=== PATIENT | male | born 1935 | race Caucasian/White ===

== ENCOUNTER 2016-10-29 15:01 | Observation (INO) ==
[2016-10-29] MEDS ORDERED: DUONEB (A & A) INH SCH (17:45)
[2016-10-29 19:08] LABS: MANUAL DIFF NEEDED? NO
[2016-10-29 19:11] LABS: BASO% 0.3 % (0.0-0.8); EOS# 0.23 X1000 (0.0-0.7); EOS% 2.3 % (0.0-10.0); HEMATOCRIT 40.9 % (42.0-52.0); HEMOGLOBIN 13.8 g/dL (14.0-18.0); IMM GRAN# 0.02 X1000 (0.0-0.04); IMM GRAN% 0.2 % (0.0-0.5); LYMPH# 2.41 X1000 (1.2-3.4); LYMPH% 24.3 % (20.5-51.1); MCHC 33.7 g/dL (33-37); MCV 83.1 FL (81-99); MONO% 6.1 % (1.7-9.3); MPV 8.5 FL (7.4-10.4); NEUT% 66.8 % (42.2-75.2); PLT 257 X1000 (130-400); RBC 4.92 XMIL (4.7-6.1)
[2016-10-29 19:19] LABS: INR 1.01; PROTIME 10.6 Seconds (9.2-11.7)
[2016-10-29 19:45] LABS: ALBUMIN 4.4 g/dL (3.5-5.0); CALCIUM 9.1 mg/dL (8.8-10.2); POTASSIUM 4.2 mmol/L (3.5-5.1); TOTAL BILIRUBIN 0.28 mg/dL (0.20-1.00); TOTAL PROTEIN 8.2 g/dL (6.3-8.3)
[2016-10-29] MEDS ORDERED: LOVENOX SUBQ SCH (20:00)
[2016-10-29] MEDS: HUMALOG SUBQ SCH (21:47)
[2016-10-29] MEDS: LOPRESSOR PO SCH (21:48)
[2016-10-29] MEDS: DUONEB (A & A) INH SCH (22:32)
[2016-10-30] MEDS: DUONEB (A & A) INH SCH ×3 (05:06→15:53)
[2016-10-30] MEDS: HUMALOG SUBQ SCH ×3 (06:39→16:00)
[2016-10-30 07:06] LABS: MANUAL DIFF NEEDED? NO
[2016-10-30 07:17] LABS: BASO% 0.5 % (0.0-0.8); EOS# 0.32 X1000 (0.0-0.7); EOS% 3.7 % (0.0-10.0); HEMATOCRIT 40.8 % (42.0-52.0); HEMOGLOBIN 13.7 g/dL (14.0-18.0); IMM GRAN# 0.02 X1000 (0.0-0.04); IMM GRAN% 0.2 % (0.0-0.5); LYMPH# 2.42 X1000 (1.2-3.4); LYMPH% 27.8 % (20.5-51.1); MCH 27.6 PG (27-31); MCHC 33.6 g/dL (33-37); MCV 82.3 FL (81-99); MPV 9.2 FL (7.4-10.4); NEUT% 59.8 % (42.2-75.2); PLT 235 X1000 (130-400); RBC 4.96 XMIL (4.7-6.1)
[2016-10-30 07:38] LABS: AGAP 13; ALKALINE PHOSPHATASE 84 U/L (32-122); BUN 15 mg/dL (8-22); CALCIUM 9.7 mg/dL (8.8-10.2); CHLORIDE 90 mmol/L (98-107); COSMO 258; GOT 16 U/L (10-34); GPT 10 U/L (10-44); HDL 31 mg/dL (35-55); LDL 95 mg/dL; MAGNESIUM 1.9 mg/dL (1.5-2.7); POTASSIUM 4.3 mmol/L (3.5-5.1); SODIUM 128 mmol/L (136-145); TCO2 25 mmol/L (25-35); TOTAL BILIRUBIN 0.41 mg/dL (0.20-1.00); TOTAL PROTEIN 7.8 g/dL (6.3-8.3); TRIGLYCERIDES 86 mg/dL (39-160); VLDL 17 mg/dL
[2016-10-30 07:57] LABS: FREE T4 1.14 ng/dL (0.93-1.70)
[2016-10-30] MEDS: LOPRESSOR PO SCH (08:44)
[2016-10-30] MEDS ORDERED: ASPIRIN PO SCH (09:00)
[2016-10-30] MEDS ORDERED: NORVASC PO SCH ×2 (09:00)
[2016-10-30] MEDS ORDERED: LIVALO PO SCH (09:00)
[2016-10-30 15:48] VITALS: BP 142/62
== END 2016-10-30 17:02 | disposition home or self-care (01) ==
LOC: DIRADM → 3N 17:25
PROVIDERS: ADMIT Internal Medicine; ATTEND Internal Medicine

== ENCOUNTER 2018-03-04 15:00 | Observation (INO) ==
--- NOTE | 2018-03-04 16:09 | Diag Imaging Result Doc PS360 ---
MRI BRAIN W/O CONTRAST - 03/04/2018 INDICATION: tia COMPARISON: None FINDINGS: There is no area of restricted diffusion. There is moderate diffuse atrophy. There is advanced cerebral white matter chronic microvascular disease. No intracranial mass or hemorrhage. There is extensive sinusitis of mainly the maxillary sinuses. There is also extensive bilateral otomastoiditis. IMPRESSION: No acute intracranial abnormality. Extensive sinusitis and bilateral otomastoiditis. Electronically signed by Sloan Osborn 03/04/2018 4:07 PM
--- NOTE | 2018-03-04 16:09 | EKG Report ---
Test Performed on : 03/04/2018 4:05:32 PM Test Reason : tia Blood Pressure : / mmHG Vent. Rate : 080 BPM Atrial Rate : 080 BPM P-R Int : 152 ms QRS Dur : 088 ms QT Int : 354 ms P-R-T Axes : 010 050 068 degrees QTc Int : 408 ms Sinus rhythm. with occasional premature ventricular complexes. Minimal voltage criteria for LVH, may be normal variant Borderline ECG When compared with ECG of 29-OCT-2016 18:14, premature ventricular complexes. are now present Confirmed by Marco A YUNG, Nicholas Davis ([id number]) on 03/05/2018 8:04:57 AM
--- NOTE | 2018-03-04 16:25 | Diag Imaging Result Doc PS360 ---
CHEST-2 VIEWS - 03/04/2018 INDICATION: tia COMPARISON: 01/12/2018 FINDINGS: Stable advanced COPD with pulmonary fibrosis. No new or focal infiltrates. Heart size is top normal. No pneumothorax or pleural effusion. IMPRESSION: COPD with pulmonary fibrosis. No change from prior. Electronically signed by Sloan Osborn 03/04/2018 4:23 PM
[2018-03-04] MEDS: NS 1,000 ML IV SCH (18:26)
[2018-03-04 18:33] LABS: BASO# 0.06 X1000 (0.0-0.2); BASO% 0.8 % (0.0-0.8); EOS# 0.66 X1000 (0.0-0.7); EOS% 8.5 % (0.0-10.0); HEMATOCRIT 41.8 % (42.0-52.0); HEMOGLOBIN 13.5 g/dL (14.0-18.0); IMM GRAN# 0.03 X1000 (0.0-0.04); IMM GRAN% 0.4 % (0.0-0.5); LYMPH# 2.23 X1000 (1.2-3.4); LYMPH% 28.6 % (20.5-51.1); MCH 26.9 PG (27-31); MCHC 32.3 g/dL (33-37); MCV 83.4 FL (81-99); MONO# 0.76 X1000 (0.11-0.59); MONO% 9.7 % (1.7-9.3); NEUT# 4.06 X1000 (1.4-6.5); PLT 259 X1000 (130-400); RBC 5.01 XMIL (4.7-6.1); RDW 14.6 % (11.5-14.5)
[2018-03-04 18:50] LABS: AGAP 11; ALB/GLOB RATIO 1.1; ALBUMIN 3.6 g/dL (3.5-5.0); ALKALINE PHOSPHATASE 77 U/L (32-122); BUN 12 mg/dL (8-22); CALCIUM 9.1 mg/dL (8.8-10.2); CHLORIDE 90 mmol/L (98-107); COSMO 259; ESTIMATED GFR > 60; GLUCOSE 97 mg/dL (70-104); GOT 17 U/L (10-34); GPT 16 U/L (10-44); MAGNESIUM 1.7 mg/dL (1.5-2.7); POTASSIUM 4.4 mmol/L (3.5-5.1); SODIUM 129 mmol/L (136-145); TCO2 28 mmol/L (25-35); TOTAL BILIRUBIN 0.21 mg/dL (0.20-1.00); TOTAL PROTEIN 6.9 g/dL (6.3-8.3)
[2018-03-04] MEDS: LOVENOX SUBQ SCH ×2 (19:06→19:34)
[2018-03-04] MEDS: ASPIRIN EC PO SCH (19:06)
[2018-03-04 19:17] LABS: BANDS 7 % (0-1); EOS 4 % (1-10); LYMPHS 29 % (21-51); MONO 6 % (1-9); SEGS 53 % (42-75)
[2018-03-04] MEDS: PERFOROMIST NEB INH SCH (19:45)
[2018-03-04] MEDS ORDERED: PERFOROMIST NEB INH SCH (21:00)
[2018-03-04] MEDS: MACROBID PO SCH (21:29)
[2018-03-04] MEDS: LOPRESSOR PO SCH (21:29)
--- NOTE | 2018-03-05 03:09 | HISTORY AND PHYSICAL ---
CHIEF COMPLAINT: Altered mental status. HISTORY OF PRESENT ILLNESS: The patient has been sick since Friday. The patient claimed he had a UTI. He came to see me. I gave him Macrobid, Norvasc, hydrochlorothiazide, and patient was already on beta-eduardo. Patient took all of his medications. Within an hour, patient became weak and disoriented. He was not communicating well. According to , the patient was not acting right. He had right-sided weakness. Also had questionable slurred speech and disorientation. was concerned about stroke. Unsteady gait, vertigo. Patient does have vertigo off and on, but because of altered mental status, unsteady gait, and weakness, was concerned about stroke. She took him to the emergency room. The patient had initial evaluation or triage done. Patient was told it may take many hours before physician sees him. Patient was feeling some better and he left the hospital without being seen. According to , the patient is still not doing well. He still has an unsteady gait, vertigo, at times confusion, some weakness in the right side. The patient was brought to my office. I evaluated the patient and decided to admit him for observation. The patient is very vague and a poor historian. He does have multiple risk factors for atherosclerosis and coronary artery disease including uncontrolled hypertension, hyperlipidemia, smoker, and diabetes mellitus. The patient is noncompliant to treatment and followup. The patient does have chronic cough with scanty sputum production. He denied any hemoptysis. The patient does have advanced COPD, pulmonary fibrosis. The patient is on nebulizer treatment. Does have occasional headache, vertigo. Denied any sore throat. No typical chest pain. At times, palpitations. No orthopnea or PND. Denied abdominal pain, nausea, vomiting. No diarrhea, blood or mucus in the stool. No dysuria or hematuria. The patient does have urinary hesitancy, at times polyuria, polydipsia. No gross hematuria. Denied any leg swelling, unquantified weight loss. No skin rash. Complaining of weakness in the right upper and lower limbs. Complaining of headache. The patient does have a problem with hearing. At times, arthritic pain in the knee. No further history available at this time. ALLERGIES: Augmentin. PAST MEDICAL HISTORY: Hypertension, hyperlipidemia, diabetes mellitus, vertigo, COPD, pulmonary fibrosis, coronary artery disease, BPH, NIDDM. PERSONAL HISTORY: and lives with the . The patient does smoke. Denied alcohol or substance abuse. FAMILY HISTORY: Noncontributory. CURRENT MEDICATIONS: Includes metoprolol. The patient is on Perforomist, aspirin, Macrobid, hydrochlorothiazide. REVIEW OF SYSTEMS: As per HPI. PHYSICAL EXAMINATION: GENERAL: Elderly, white gentleman, in mild distress. VITAL SIGNS: Blood pressure 162/89, pulse 66, respirations 20, temperature 98.4 degrees. SKIN: Senile turgor. HEENT: Head atraumatic, normocephalic. Valeria conjunctivae. Anicteric sclerae. Extraocular muscle movement normal. Fundus cannot be penetrated. Good oral hygiene. No tonsillopharyngeal congestion or exudate. Ears and nose benign. NECK: Supple. No JVD, thyromegaly, or lymphadenopathy. CHEST: Bilateral good air entry present. Bibasilar crepitation. Bilateral occasional wheezing. CARDIOVASCULAR: S1 and S2 heard. No gallop or thrill. ABDOMEN: Soft, globular. Bowel sounds present. No organomegaly or mass. EXTREMITIES: No cyanosis or clubbing. No acute DVT. Peripheral pulsation intact. FREELANCE GRAPHIC DESIGNER: Alert, awake. Able to move all 4 limbs. The patient does have questionable minimal weakness on the right side. Deep tendon reflexes +2. Plantars were downgoing. CONSIDERATION: Patient admitted with symptoms suggestive of transient ischemic attack. His other problems include vertigo, hypertension, hyperlipidemia, noninsulin-dependent diabetes mellitus, chronic obstructive pulmonary disease, pulmonary fibrosis. Chest x-ray did reveal chronic obstructive pulmonary disease with pulmonary fibrosis. I did MRI of the brain. No acute intracranial abnormality. It did show extensive sinusitis and bilateral otomastoiditis. The patient's electrocardiogram was noted. The lab data revealed mild hyponatremia. Otherwise, it was benign. Magnesium was 1.7. CBC results reviewed. PLAN: Admit the patient for observation, telemetry monitoring, neurological checks, fall precaution. Continue home medicine, aspirin. Overall plan discussed with the patient and . They are in agreement. cc: Blu Kessler MD
[2018-03-05 06:15] LABS: BASO# 0.05 X1000 (0.0-0.2); BASO% 0.6 % (0.0-0.8); EOS# 0.81 X1000 (0.0-0.7); EOS% 9.9 % (0.0-10.0); HEMATOCRIT 38.5 % (42.0-52.0); HEMOGLOBIN 12.4 g/dL (14.0-18.0); IMM GRAN# 0.04 X1000 (0.0-0.04); IMM GRAN% 0.5 % (0.0-0.5); LYMPH# 2.17 X1000 (1.2-3.4); LYMPH% 26.6 % (20.5-51.1); MCHC 32.2 g/dL (33-37); MCV 83.7 FL (81-99); MONO# 0.89 X1000 (0.11-0.59); MONO% 10.9 % (1.7-9.3); NEUT# 4.21 X1000 (1.4-6.5); NEUT% 51.5 % (42.2-75.2); PLT 232 X1000 (130-400); RDW 14.4 % (11.5-14.5); WBC 8.17 X1000 (4.8-10.8)
[2018-03-05] MEDS: NS 1,000 ML IV SCH (06:25)
[2018-03-05 06:29] LABS: HEMOGLOBIN A1C 6.3 % (4.8-6.0)
[2018-03-05 06:32] LABS: AGAP 8; ALBUMIN 3.4 g/dL (3.5-5.0); ALKALINE PHOSPHATASE 65 U/L (32-122); BUN 14 mg/dL (8-22); CHLORIDE 97 mmol/L (98-107); CHOLESTEROL 144 mg/dL (0-200); COSMO 267; ESTIMATED GFR > 60; GLUCOSE 108 mg/dL (70-104); GOT 15 U/L (10-34); GPT 13 U/L (10-44); HDL 24 mg/dL (35-55); LDL 98 mg/dL; SODIUM 133 mmol/L (136-145); TCO2 28 mmol/L (25-35); TOTAL BILIRUBIN 0.27 mg/dL (0.20-1.00); TOTAL PROTEIN 6.8 g/dL (6.3-8.3); TRIGLYCERIDES 112 mg/dL (39-160); VLDL 22 mg/dL
[2018-03-05] MEDS ORDERED: NICODERM PATCH TD ONE (06:39)
[2018-03-05] MEDS ORDERED: ROCEPHIN 1 GM in NS 50 ML IV SCH (06:45)
--- NOTE | 2018-03-05 07:30 | PROGRESS NOTE ---
DATE: 03/05/2018 SUBJECTIVE: Mr. Gamble is doing better. He does have chronic cough with scanty sputum production. No fever or chills. No new weakness. Denied any nausea or vomiting. Denied any dysuria or hematuria. OBJECTIVE: Patient vital signs noted. Blood pressure 162/75, pulse 74, respirations 20, temperature 97.4. Skin: Senile turgor. No rash or petechiae. HEENT: Head atraumatic, normocephalic. [place] conjunctivae. Anicteric sclerae. Extraocular muscle movement normal. Neck supple. No JVD. Lungs: Bibasilar crepitation. Occasional wheezing. CVS: S1 and S2 heard. Abdomen soft, nontender. Bowel sounds present. Extremities: No cyanosis, clubbing. No acute DVT. HELP DESK SUPERVISOR: Alert, awake, able to move all 4 limbs. The patient's EKG reveals sinus rhythm. The patient had an MRI of the brain done, which did reveal no acute stroke, extensive sinusitis, and bilateral otomastoiditis. I started the patient on antibiotics, and I am going to treat him for 21 days. Carotid Doppler and echo result is pending. Lab data done today: WBC count 8.17, hemoglobin 12.4, hematocrit 38.5, platelet count 232,000. Sodium 133. Hemoglobin A1c 6.3. Lipid panel results reviewed. LDL was 98. Considering his diabetes and multiple risk factors, the patient will be benefited from lipid lowering agent. I started the patient on antibiotics. Will continue current blood pressure medicine. Follow up with me in a week. In case of more distress, call us back or go to the emergency room. Overall discharge condition satisfactory. I encouraged the patient to quit smoking. 1800 calorie ADA. cc: Blu Kessler MD
--- NOTE | 2018-03-05 08:16 | ECHO REPORT ---
ORDER DATE: 03/04/2018 INDICATIONS: Transient ischemic attack, coronary heart disease, COPD. M-MODE MEASUREMENTS: Left ventricle end diastole: 4.4 cm. Left ventricle end systole: 3.4 cm. Posterior wall: 1.3 cm. Interventricular septum: 1.4 cm. Left atrium: 3.1 cm. Aortic root: 3.7 cm. SUMMARY OF 2-DIMENSIONAL IMAGIN. The left ventricular function is normal. Ejection fraction 55%. There is mild degree of concentric LVH. No wall motion abnormality is noted. Right ventricle is grossly normal. 2. Aortic valve is calcified. It shows restricted opening. Maximum gradient across this valve is 21 mmHg. Mean gradient is 12 mmHg. This would suggest that there is only a very mild degree of aortic stenosis. Color flow mapping shows mild to moderate degree of aortic regurgitation. 3. The mitral annulus shows no calcification. Color flow mapping of mitral valve indicates mild degree of regurgitation. 4. Pulse wave Doppler of mitral inflow shows reversal of E/A ratio, ratio is 0.6. 5. Tissue Doppler of septal and lateral mitral annulus averages 5.5 cm. 6. There is impaired left ventricular relaxation. 7. Tricuspid valve shows trace regurgitation. 8. The inferior vena cava is not dilated. 9. Pulmonary artery pressure is normal. 10.Pulmonic valve appears to be within normal range. Color flow mapping indicates mild degree of regurgitation. 11.There is no pericardial effusion, mass and no thrombus. SUMMARY: In summary, this study shows: 1. Preserved left ventricular systolic function, ejection fraction 55% with mild degree of concentric left ventricular hypertrophy. 2. Impaired left ventricular relaxation. 3. Normal pulmonary pressure. 4. Calcification of the aortic valve with mild to moderate degree of aortic regurgitation and mild degree of aortic stenosis. Clinical correlation recommended. cc: MD Blu Tinajero MD [facility] SYSTEMMarcelle
[2018-03-05] MEDS: MACROBID PO SCH (08:38)
[2018-03-05] MEDS: LOPRESSOR PO SCH (08:38)
[2018-03-05] MEDS: ASPIRIN EC PO SCH (08:40)
[2018-03-05] MEDS ORDERED: NORVASC PO SCH (09:00)
[2018-03-05] MEDS ORDERED: HYDROCHLOROTHIAZIDE PO SCH (09:00)
[2018-03-05] MEDS: PERFOROMIST NEB INH SCH (11:07)
[2018-03-05 11:32] VITALS: BP 161/89
== END 2018-03-05 12:50 | disposition home or self-care (01) ==
LOC: DIRADM → 4N 15:00
PROVIDERS: ADMIT Internal Medicine; ATTEND Internal Medicine
CPT/HCPCS: 70551; 71020; 71046; 80053; 80061; 83036; 83735; 85025; 93005; 93010; 93306; 93880; 94640; 94761; A9270; C8929; J0696; J1650; J7030; J7606; Q9957

== ENCOUNTER 2018-06-06 15:14 | Inpatient (IN) ==
[2018-06-06] MEDS ORDERED: NS 1,000 ML IV ONE (16:38)
[2018-06-06] MEDS ORDERED: ROCEPHIN 1 GM in NS 50 ML IV ONE (16:41)
--- NOTE | 2018-06-06 17:39 | PROVIDER DOCUMENTATION ---
HPI-Abdominal Pain/GI Problem - General Chief Complaint: Flank Pain Stated Complaint: UTI Time Seen by Provider: 06/06/18 15:19 Source: patient, family Allergies/Adverse Reactions: Patient Allergies Allergy/AdvReac Type Severity Reaction Status Date / Time amoxicillin trihydrate * AdvReac Intermediate NAUSEA/VOMI Verified 04/02/14 20:39 [From Augmentin] TING potassium clavulanate * AdvReac Intermediate NAUSEA/VOMI Verified 04/02/14 20:39 [From Augmentin] TING Home Medications: Home Medication List Medication Instructions Recorded Confirmed Last Taken Type Aspirin 81 mg PO DAILY 07/23/12 06/05/18 03/04/18 09:00 History Metoprolol [Lopressor] 100 mg PO BID 07/23/12 06/05/18 03/04/18 09:00 History Formoterol Fumarate [Perforomist] 1 packet INH BID 10/30/16 06/05/18 03/04/18 09:00 History Hydrochlorothiazide [Microzide] 12.5 cap PO DAILY 03/04/18 06/05/18 03/03/18 09:00 History ATORVAstatin [Lipitor] 10 mg PO DAILY #30 tablet 03/05/18 06/05/18 Unknown Rx Amlodipine [Norvasc] 5 mg PO DAILY tablet 03/05/18 Unknown Rx Ciprofloxacin HCl [Cipro] 500 mg PO BID #20 tab 06/05/18 Unknown Rx Sitagliptin Phosphate [Januvia] 100 mg PO DAILY 06/05/18 06/05/18 Unknown History - History of Present Illness-ABD Nature of Presenting Problems: reports that he has flank pain b/l. associated with dizziness for the last few days. has history of burning/painful urination intermittent for awhile. no fever chills, n/v, abd pain, sob. cp, headache, blurred vision. Review of Systems - Adult - REVIEW OF SYSTEMS - ADULT Constitutional: reports: no symptoms reported Eyes: reports: no symptoms reported Ears, Nose, Mouth & Throat: reports: no symptoms reported Cardiovascular: reports: no symptoms reported Respiratory: reports: no symptoms reported Gastrointestinal: reports: no symptoms reported Genitourinary: reports: no symptoms reported Musculoskeletal: reports: no symptoms reported Integumentary: reports: no symptoms reported Neurological: reports: no symptoms reported Psychiatric: reports: no symptoms reported Endocrine: reports: no symptoms reported Hematologic/Lymphatic: reports: no symptoms reported Allergic/Immunologic: reports: no symptoms reported All Other Systems: Reviewed and Negative Past History - Adult - PAST MEDICAL HISTORY-ADULT Review of Records: reports: Old Records Reviewed, Nursing Assessment Review, Medications Reviewed, Social history reviewed & non-contributory. Major Childhood Illnesses: reports: denies history Cardiovascular: reports: CAD, HTN Respiratory: reports: COPD Gastrointestinal: reports: denies history Obstetrical/Gynecological: reports: denies history Genitourinary: reports: denies history Musculoskeletal: reports: denies history Neurological: reports: denies history Endocrine/Immune: reports: Diabetes Other Conditions: reports: denies history - PRIOR SURGERIES/PROCEDURES Surgical/Procedure History: reports: appendectomy, cholecystectomy, tonsillectomy, other - IMMUNIZATION STATUS Childhood Immunizations: See Nurse Assessment Flu Vaccine: See Nurse Assessment - FAMILY HISTORY Family History: reviewed, not pertinent - SOCIAL HISTORY Smoking: denies Substance Use: none/never Alcohol Use Frequency: never Living Situation: family Physical Exam-General - PHYSICAL EXAM-ADULT Initial Vital Signs Reviewed: Yes - CONSTITUTIONAL General Appearance: appears well, alert, no apparent distress - EYES Eyes: PERRL/EOMI, pink conjunctivae - HEAD, EARS, NOSE, MOUTH & THROAT HENMT: normocephalic/atraumatic, other (dry oral mucous) - NECK Neck: non-tender, full range of motion - RESPIRATORY Respiratory: chest non-tender, lungs clear - CARDIOVASCULAR Cardiovascular: normal peripheral pulses, regular rate, rhythm - GASTROINTESTINAL (ABDOMEN) Abdominal Exam: normal bowel sounds, non tender - MUSCULOSKELETAL Back Exam: CVA tenderness (b/l) Extremity: normal range of motion, non-tender - SKIN Integumentary: normal color, warm/dry - NEUROLOGIC Neurologic: grossly normal, no motor/sensory deficits - PSYCHIATRIC Psych/Mental Status: normal thought content, normal thought process, oriented x 3 Progress - PLAN OF CARE/RESULTS Progress/Plan/Lab Results: Vital Signs - 8 hr 06/06/18 15:34 Temperature 98.6 F Pulse Rate 85 Respiratory Rate 18 Blood Pressure 104/51 O2 Sat by Pulse Oximetry 96 Orders Category Date Time Status CT ABD/PELVIS W/IV CONT ONLY [CT] Stat Exams 06/06/18 17:29 Ordered BASIC METABOLIC PANEL [CHEM] Stat Lab 06/06/18 17:10 Received CBC WITH DIFF [HEME] Stat Lab 06/06/18 17:10 Results LACTATE, PLASMA [CHEM] Stat Lab 06/06/18 17:35 Ordered URINALYSIS [URINALYSIS] Stat Lab 06/06/18 15:26 Uncollected 0.9% Sodium Chloride Inj [Ns] 1,000 ml Med 06/06/18 16:38 Active IV 999 mls/hr CefTRIAXONE [Rocephin] 1 gm Med 06/06/18 16:41 Discontinued 0.9% Sodium Chloride Inj [Ns] 50 ml IV NOW Result Diagrams: 06/06/18 17:10 06/06/18 17:10 Departure - Departure Date of Disposition Decision: 06/06/18 Time of Disposition Decision: 21:01 DIAGNOSIS: Hypotension, SIRS (systemic inflammatory response syndrome) Disposition: ADMITTED INPATIENT 09 Certified Medical Emergency: Emergent Condition: Stable Referrals and Follow-Ups: Blu Kessler MD [Primary Care Provider] - - Critical Care Note This patient required my direct & personal management of CC.: No Attestation - Physician/ HARMONY Attestation The physician spent face to face time with patient:: Yes Advanced Practice Provider documentation review:: Supervising physician onsite and consulted in the evaluation and care of this patient. The physician did have a face to face encounter with the patient.
[2018-06-06 17:42] LABS: BASO# 0.02 X1000 (0.0-0.2); BASO% 0.1 % (0.0-0.8); EOS# 0.01 X1000 (0.0-0.7); EOS% 0.1 % (0.0-10.0); HEMATOCRIT 35.9 % (42.0-52.0); HEMOGLOBIN 11.7 g/dL (14.0-18.0); IMM GRAN# 0.04 X1000 (0.0-0.04); IMM GRAN% 0.2 % (0.0-0.5); LYMPH# 0.55 X1000 (1.2-3.4); LYMPH% 3.1 % (20.5-51.1); MCH 27.2 PG (27-31); MCHC 32.6 g/dL (33-37); MCV 83.5 FL (81-99); MONO# 1.21 X1000 (0.11-0.59); MONO% 6.8 % (1.7-9.3); MPV 9.4 FL (7.4-10.4); NEUT# 15.85 X1000 (1.4-6.5); NEUT% 89.7 % (42.2-75.2); PLT 218 X1000 (130-400); RDW 14.9 % (11.5-14.5); WBC 17.68 X1000 (4.8-10.8)
[2018-06-06 18:12] LABS: LYMPHS 3 % (21-51); MONO 5 % (1-9); SEGS 92 % (42-75)
[2018-06-06 18:16] LABS: CREATININE 1.7 mg/dL (0.7-1.2); POTASSIUM 4.2 mmol/L (3.5-5.1)
[2018-06-06 18:55] LABS: URINE SOURCE VOIDED
[2018-06-06 18:58] LABS: BILIRUBIN URINE NEGATIVE (NEGATIVE); BLOOD URINE SMALL (NEGATIVE); COLOR YELLOW; GLUCOSE URINE NEGATIVE (NEGATIVE); KETONE URINE NEGATIVE (NEGATIVE); LEUKOCYTES URINE LARGE (NEGATIVE); NITRITE URINE NEGATIVE (NEGATIVE); PH URINE 5.5; PROTEIN URINE 30 mg/dL (NEGATIVE); SP GRAVITY URINE 1.009; TURBIDITY URINE HAZY (CLEAR); UROBILINOGEN URINE NORMAL (NORMAL)
[2018-06-06 19:01] LABS: UR EPITHELIAL CELLS <10 /HPF (<10); URINE BACTERIA NEGATIVE /HPF; URINE RBC <10 /HPF (<10); URINE WBC TNTC /HPF (<10)
--- NOTE | 2018-06-06 19:14 | Diag Imaging Result Doc PS360 ---
EXAM: CT ABDOMEN/PELVIS W/O CONTRAST INDICATION: pyelo TECHNIQUE: This exam was performed using automated exposure control, adjustment of mA or kV according to patient size, and/or use of iterative reconstruction technique. COMPARISON: 06/22/2014 FINDINGS: There is pulmonary fibrosis at both lung bases with honeycombing. There has been a prior cholecystectomy. The liver, spleen, pancreas, and adrenal glands are essentially unremarkable. There are several small cyst density lesions involving both kidneys. There are no renal or ureteral stones and there is no hydronephrosis. The kidneys are essentially unremarkable as imaged with unenhanced CT, otherwise. The urinary bladder is partially distended. Incomplete distention is causing mild wall thickening. The urinary bladder is unremarkable, otherwise. There is moderate uncomplicated diverticulosis coli. No focal bowel wall thickening is identified. There is no evidence of bowel obstruction. The remainder of the GI tract is grossly unremarkable. There is extensive aortoiliac atherosclerotic calcification. There is intermittent subaneurysmal aortic ectasia. No focal inflammatory changes, free abdominal gas, or free fluid is identified. There is lumbar spondylosis. The bony structures are intact. IMPRESSION: Incidental/nonacute findings detailed above. No evidence of acute pathology by unenhanced CT. Electronically signed by Jamey Sarah 06/06/2018 7:12 PM
--- NOTE | 2018-06-06 21:34 | Diag Imaging Result Doc PS360 ---
EXAM: CT THORAX W/O CONTRAST INDICATION: pulmonary fibrosis honeycomb, pna. TECHNIQUE: This exam was performed using automated exposure control, adjustment of mA or kV according to patient size, and/or use of iterative reconstruction technique. COMPARISON: 05/10/2015 FINDINGS: There is coarse interstitial thickening at the peripheries of both lungs that is worst at the lung bases consistent with pulmonary fibrosis. There is associated honeycombing. The fibrosis has worsened slightly during the interval, at least at the bases. There is also likely a component of pulmonary emphysema at the lung apices. There is a catheter via granuloma in the right upper lobe. No new consolidations are appreciated. There are a few small calcified pleural plaques posteriorly. There is no pleural fluid collection and no pneumothorax. There is no cardiomegaly. There is extensive coronary artery atherosclerotic calcification. There is aortic atherosclerotic disease. IMPRESSION: Pulmonary fibrosis that is slightly worse than the previous study as described also with a probable component of emphysema. No definite acute chest pathology. Electronically signed by Jamey Sarah 06/06/2018 9:32 PM
[2018-06-07] MEDS ORDERED: TYLENOL PO PRN (00:44)
[2018-06-07] MEDS ORDERED: ZOFRAN IV PRN (00:44)
[2018-06-07] MEDS: NS 1,000 ML IV SCH ×2 (01:47→15:02)
[2018-06-07] MEDS: MAXIPIME 1 GM in NS 50 ML IV SCH ×2 (01:48→15:03)
[2018-06-07] MEDS: HEPARIN SUBQ SCH ×3 (01:48→15:09)
--- NOTE | 2018-06-07 06:05 | HISTORY AND PHYSICAL ---
REASON FOR ADMISSION: Weakness and dizziness with bilateral flank pain for 1 week. HISTORY OF PRESENT ILLNESS: Mr. Doug Gamble is an 83-year-old male with past medical history of COPD, BPH, pulmonary fibrosis, hypertension, type 2 diabetes. Was seen in the ER yesterday with complaints of bilateral flank pain. He was sent home on some antibiotics, namely ciprofloxacin, and told to follow up with primary care physician. So far his cultures are not growing anything yet, but patient comes in complaining that his pain is constant in the flank emanating from the base of his spine and spreading out to both flanks. He describes the pain as sharp, constant, worse with movement and also complains of a 2-week history of dysuria but no hematuria. Has a longstanding history of poor urinary stream which has not worsened. He does admit to having 2 weeks history of chills with this. No fevers, however. He denies any GI complaints. He denies any respiratory complaints other than a chronic cough productive of whitish sputum for several years and he sees a microsoft exchange administrator for this. No increased shortness of breath. No leg swelling. No PND or orthopnea. REVIEW OF SYSTEMS: Twelve system review was done. Positive findings per HPI. ALLERGIES: Amoxil and Augmentin. MEDICATIONS: Home medications have been not reconciled at this time. SOCIAL HISTORY: Smokes 1-1/2 packs a day. No alcohol or drug use. He is . FAMILY HISTORY: Notable for heart disease in first-degree relatives. SURGICAL HISTORY: Was not reviewed. PAST MEDICAL HISTORY: See above including coronary artery disease. LABORATORY WORK: White count 7000, hemoglobin and hematocrit 11 and 36, platelets 218,000, 89% neutrophils. Sodium is 125, BUN is 35, creatinine 1.7 up from 1.4 yesterday, glucose is 121. Urinalysis, large leukocytes, too numerous to count WBCs. CT of the abdomen and pelvis shows no acute pathology especially no evidence of renal stranding. CT of the chest was also done to rule out the possibility of underlying pneumonia but it does slightly worsening pulmonary fibrosis. PHYSICAL EXAMINATION: VITAL SIGNS: Blood pressure is 161/81, heart rate is 85, respirations 18, temperature is 98.6. He is 98% on room air. GENERAL: He is a thin, chronically ill, elderly man not in acute distress. A and O x3. Normal mood and affect. HEENT: Head is normocephalic, atraumatic. Eyes, JOSELINE. EOMI. Not pale. ENT exam is grossly normal. NECK: Supple. No JVD or carotid bruit. No thyromegaly. CHEST: Bibasilar crepitations noted in the lower half of the lungs. No wheezes. Decreased entry in both lung esquivel. CARDIOVASCULAR: First and second heart sounds are heard. Soft 2/6 systolic murmur heard in the aortic area. Rhythm is regular. ABDOMEN: Protuberant, soft. No tenderness or megaly. Bowel sounds hypoactive. RECTAL: Exam deferred at this time. There is positive right CVA tenderness. EXTREMITIES: Patient has no edema, clubbing or peripheral cyanosis. Pulses distally have good volume and regular. NEUROLOGIC: No gross focal deficits. SKIN: Intact. No breakdown, lesion, erythema. MUSCULOSKELETAL: Exam is grossly normal. ASSESSMENT: 1. Leukocytosis with flank pain. Still cannot rule out underlying pyelonephritis. Also consider possibility of etiology of sterile pyuria, i.e. fungal or mycobacterial etiology although less likely. Also consider prostatitis although this would not account for flank pain. If contrast was given, the possibility of renal abscesses may be entertained although this may have been picked up by CAT scan. The plan: We will continue patient on Rocephin. If white count fails to come down, consider broaden spectrum to cover for Pseudomonas. Give IV fluids. 2. Hyponatremia which I suspect could be hypotonic hypovolemic hyponatremia. We will continue with normal saline as this is not acute without any concerns for the possibility of osmotic diarrhea syndrome such as an acute hyponatremia. 3. Acute on chronic kidney injury probably secondary to medications and poor oral intake. Continue IV crystalloids as noted as above. 4. Coronary artery disease. The patient is not allergic to aspirin. It needs to be continued. 5. Pulmonary fibrosis, etiology yet to be determined, ? lung disease. 6. Benign prostatic hypertrophy. Resume home medications if on this. In the a.m., we will transfer care of the patient to Dr. Kessler and if patient has persistent leukocytosis maybe an indium scan may be warranted or consultation with ID. cc: MD Blu Baptiste MD MTDD
[2018-06-07 07:48] LABS: BASO# 0.02 X1000 (0.0-0.2); BASO% 0.2 % (0.0-0.8); EOS# 0.03 X1000 (0.0-0.7); EOS% 0.3 % (0.0-10.0); HEMATOCRIT 33.5 % (42.0-52.0); HEMOGLOBIN 11.1 g/dL (14.0-18.0); IMM GRAN# 0.02 X1000 (0.0-0.04); IMM GRAN% 0.2 % (0.0-0.5); LYMPH# 1.55 X1000 (1.2-3.4); LYMPH% 14.4 % (20.5-51.1); MCH 27.7 PG (27-31); MCHC 33.1 g/dL (33-37); MCV 83.5 FL (81-99); MONO# 1.05 X1000 (0.11-0.59); MONO% 9.8 % (1.7-9.3); MPV 8.7 FL (7.4-10.4); NEUT# 8.06 X1000 (1.4-6.5); NEUT% 75.1 % (42.2-75.2); PLT 199 X1000 (130-400); RBC 4.01 XMIL (4.7-6.1); RDW 14.8 % (11.5-14.5); WBC 10.73 X1000 (4.8-10.8)
[2018-06-07 08:10] LABS: CALCIUM 8.8 mg/dL (8.8-10.2); CREATININE 1.6 mg/dL (0.7-1.2); MAGNESIUM 1.6 mg/dL (1.5-2.7); POTASSIUM 3.5 mmol/L (3.5-5.1)
[2018-06-07] MEDS ORDERED: PERFOROMIST NEB INH PRN (13:55)
--- NOTE | 2018-06-07 14:31 | PROGRESS NOTE ---
DATE: 06/07/2018 SUBJECT: 83-year-old white male patient of Dr. Kessler admitted yesterday with some back pain and dizzy spells. The patient is poor historian. He was also dehydrated, possible UTI and he had an extensive workup done. His wants to reconcile home medications. REVIEW OF SYSTEMS: Basically lower back pain localized, nonradiating to the legs. No weakness. No rashes noted. PAST MEDICAL HISTORY: Reviewed. PAST SURGICAL HISTORY: Reviewed. MEDICINES: Reviewed. ALLERGIES: Amoxicillin. PHYSICAL EXAMINATION: Temperature is 98.1 degrees, pulse is 86, blood pressure is 140/60, on room air 95%.HEENT: Within normal limits. Neck: Supple. No lymphadenopathy. Chest: Bilateral air entry. Heart: Sounds are regular. Belly: Is soft, nontender. No flank tenderness noted. He has lower back pain and no neurologic deficits. INVESTIGATIONS: CBC: White cell count 10, hematocrit 33.5, platelets 199,000. Sodium 132, potassium 3.5, BUN 29, creatinine 1.6. Urinalysis, possible infection. Cultures are pending. 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 CT scan of the abdomen and pelvis. History of cholecystectomy, benign cyst in both kidneys, cystitis, diverticulosis, atherosclerosis of calcifications. Lumbar spondylosis. ASSESSMENT AND PLAN: 1. Acute metabolic encephalopathy improving. 2. Hyponatremia getting better. Continue IV fluids 125 an hour. 3. Poor intravenous access. Nurses trying to get an IV. 4. Deep vein thrombosis prophylaxis with subcutaneous heparin 5000 units subcu q.12. 5. Possible urinary tract infection, cystitis and prostatitis currently on Maxipime 1 g q.12. 6. Lower back pain due to spondylosis and will needs to work it up. 7. Type 2 diabetes on Januvia 100 daily. Continue on sliding scale with insulin coverage. 8. We will reconcile home medications predominantly #1 hyperlipidemia on Lipitor 10 daily, hypertension on metoprolol 100 p.o. b.i.d. 9. History of pulmonary fibrosis and on Perforomist. 10. Repeat the labs in the morning. Dr. Kessler is going to follow up. cc: MD Blu Shultz MD
[2018-06-07] MEDS: HUMALOG SUBQ SCH ×2 (17:43→21:55)
[2018-06-07] MEDS: LOPRESSOR PO SCH (21:56)
[2018-06-08] MEDS: MAXIPIME 1 GM in NS 50 ML IV SCH ×3 (01:27→23:45)
[2018-06-08] MEDS: HEPARIN SUBQ SCH ×2 (01:28→14:01)
[2018-06-08] MEDS: HUMALOG SUBQ SCH ×4 (06:27→23:27)
--- NOTE | 2018-06-08 06:30 | PROGRESS NOTE ---
DATE: 06/08/2018 SUBJECTIVELY: Mr. lal lesions is doing better. He still has some back pain. No dysuria or hematuria. Mental status improved. Denied any typical chest pain. No diarrhea, blood, or mucus in the stool. 83-year-old white gentleman, admitted with delirium, dysuria, and symptoms suggestive of recurrent UTI. According to , the patient also had some hematuria, known case of COPD; unfortunately patient is still smoking. No hemoptysis. Admission history and physical noted. Vital signs reviewed.Neck: Supple. No JVD. Lungs: Bibasilar crepitations, occasional wheezing. CVS S1 and S2 heard. Abdomen: Soft, globular. Bowel sounds present. Extremities: No cyanosis, clubbing. No acute DVT. CUSTOMER LEADER: Alert, awake, able to move all 4 limbs. Vague tenderness lumbosacral spine. LABORATORY DATA: Lab data did reveal leukocytosis on admission. The patient's potassium was 3.5, BUN 29, creatinine 1.6. Urinalysis did reveal leukocytes large, too numerous to count WBC. ASSESSMENT: 1. Recurrent Urinary tract infection. 2. Low back pain. 3. Chronic obstructive pulmonary disease. 4. Diabetes mellitus. 5. Chronic kidney disease. PLAN: Admission history physical and lab data noted. Patient is on IV antibiotics. Urine culture result is pending. I am going to continue current treatment. Close observation. Considering recurrent UTI. I am going to get Dr. Gomes' evaluation. cc: Blu Kessler MD
[2018-06-08] MEDS: D5 NS + KCL 20 MEQ 1,000 ML IV SCH ×2 (06:32→18:18)
[2018-06-08] MEDS ORDERED: JANUVIA PO SCH (08:00)
[2018-06-08 08:03] LABS: BASO# 0.04 X1000 (0.0-0.2); BASO% 0.5 % (0.0-0.8); EOS# 0.11 X1000 (0.0-0.7); EOS% 1.2 % (0.0-10.0); HEMATOCRIT 33.6 % (42.0-52.0); IMM GRAN# 0.02 X1000 (0.0-0.04); IMM GRAN% 0.2 % (0.0-0.5); LYMPH# 1.58 X1000 (1.2-3.4); LYMPH% 17.9 % (20.5-51.1); MCH 27.2 PG (27-31); MCHC 32.7 g/dL (33-37); MCV 83.2 FL (81-99); MONO# 1.25 X1000 (0.11-0.59); MONO% 14.2 % (1.7-9.3); NEUT# 5.82 X1000 (1.4-6.5); PLT 235 X1000 (130-400); RBC 4.04 XMIL (4.7-6.1); RDW 14.7 % (11.5-14.5); WBC 8.82 X1000 (4.8-10.8)
[2018-06-08 08:15] LABS: ALB/GLOB RATIO 1.1; ALBUMIN 3.5 g/dL (3.5-5.0); CALCIUM 8.9 mg/dL (8.8-10.2); CREATININE 1.3 mg/dL (0.7-1.2); POTASSIUM 3.8 mmol/L (3.5-5.1); TOTAL BILIRUBIN 0.21 mg/dL (0.20-1.00); TOTAL PROTEIN 6.8 g/dL (6.3-8.3)
[2018-06-08] MEDS: JANUVIA PO SCH (09:23)
[2018-06-08] MEDS: LIPITOR PO SCH (09:23)
[2018-06-08] MEDS: LOPRESSOR PO SCH ×2 (09:23→23:29)
[2018-06-08] MEDS: ASPIRIN PO SCH (09:23)
[2018-06-08] MEDS: NICODERM PATCH TD SCH (11:09)
[2018-06-08] MEDS ORDERED: PERFOROMIST NEB INH PRN (15:35)
[2018-06-08] MEDS: MOBIC PO SCH (17:14)
--- NOTE | 2018-06-08 19:31 | CONSULTATION ---
DATE OF CONSULTATION: 06/08/2018 ATTENDING AND REFERRING PHYSICIAN: Dr. Kessler. HISTORY OF PRESENT ILLNESS: This 83-year-old male was admitted with a urinary tract infection and an elevated white blood cell count. He was started on IV antibiotics and his white count is back to normal. A CT stone search did not reveal any urinary tract abnormalities. The patient and family states he has had a urinary tract infection 3 times since February. They state he usually has dysuria and increased frequency, but this time he had no burning. The patient denies any previous urologic surgery. He has had no hematuria. He denies any problems with kidney stones. PAST MEDICAL HISTORY: Coronary artery disease, COPD, pulmonary fibrosis, hypertension, type 2 diabetes, history of mumps orchitis with resulting right testis atrophy. PAST SURGICAL HISTORY: Cholecystectomy. CURRENT MEDICATIONS: Documented on the chart. SOCIAL HISTORY: One to 2 packs a day for many years. He denies alcohol use. ALLERGIES: He is allergic to penicillin. REVIEW OF SYSTEMS: He denies any chest pains, recent pulmonary or bowel problems. PHYSICAL EXAMINATION: General: A normally developed, well-nourished, age apparent, white male, who is cooperative. HEENT: Normal for age. Lungs: Distant but no rales noted. Cardiovascular: Regular rate and rhythm with 2/6 systolic ejection murmur. Abdomen: Protuberant, soft, nontender. No hepatosplenomegaly or masses. Normal bowel sounds. : Uncircumcised male. Foreskin retracts. Both testes are descended. The right testis is atrophic. No inguinal hernias. Rectal: Normal sphincter tone. Prostate about 40 g, smooth and symmetric. Extremities: No clubbing, cyanosis, or edema. Neurologic: No focal deficits. LABORATORY EVALUATION: Has a white count of 8.82, hemoglobin 11.0, hematocrit 33.6, and platelets are 235,000. Serum electrolytes are normal. BUN 24, creatinine 1.3, his serum glucose was 134. CT stone search again has no urologic abnormalities. IMPRESSION: 1. Enlarged prostate with obstructive voiding. 2. Recurrent urinary infections. 3. Tobacco abuse. 4. Atrophic right testis. RECOMMEND: 1. Check urine for culture and sensitivities. It was sent down for culture earlier today. 2. Continue IV antibiotics since his white count is back to normal. 3. Uroxatral 10 mg every night. The patient's family states when he takes Flomax he gets severe diarrhea. Thank you for this consultation. cc: MD Blu Fields MD
[2018-06-08] MEDS: UROXATRAL PO SCH (23:28)
[2018-06-09] MEDS: HEPARIN SUBQ SCH ×3 (06:11→13:02)
[2018-06-09] MEDS: HUMALOG SUBQ SCH ×4 (06:13→21:30)
[2018-06-09] MEDS: PRILOSEC PO SCH (06:15)
--- NOTE | 2018-06-09 06:37 | PROGRESS NOTE ---
DATE: 06/09/2018 SUBJECTIVE: Mr. Gamble is doing fair. No high-grade fever or chills. Denied any nausea or vomiting. The patient does have postural dizziness. Evaluated by urologist, recommendation noted. Urine culture result is pending. No fever or chills. Patient does have chronic cough. OBJECTIVE: VITAL SIGNS: His vital signs noted. Neck: Supple. No JVD. Lungs: Bilateral good air entry present. CVS: S1 and S2 heard. Abdomen: Soft, globular. Bowel sounds present. BRIGHT CUTTER: Alert, awake. Able to move all 4 limbs. Crepitation both the knee joints. LABORATORIES: I did check his PSA which was 1.27. BUN done yesterday was 24, creatinine 1.3. Blood sugar results reviewed. I am going to try Norvasc for hypertension. Continue the rest of the treatment and close observation. Fall precaution. cc: Blu Kessler MD
[2018-06-09 07:25] LABS: BASO# 0.03 X1000 (0.0-0.2); BASO% 0.5 % (0.0-0.8); EOS% 3.3 % (0.0-10.0); HEMATOCRIT 34.3 % (42.0-52.0); HEMOGLOBIN 11.1 g/dL (14.0-18.0); LYMPH# 1.33 X1000 (1.2-3.4); MCH 27.2 PG (27-31); MCHC 32.4 g/dL (33-37); MCV 84.1 FL (81-99); MONO# 0.68 X1000 (0.11-0.59); MONO% 11.2 % (1.7-9.3); MPV 8.8 FL (7.4-10.4); NEUT# 3.81 X1000 (1.4-6.5); PLT 231 X1000 (130-400); RBC 4.08 XMIL (4.7-6.1); RDW 14.6 % (11.5-14.5); WBC 6.05 X1000 (4.8-10.8)
[2018-06-09] MEDS: D5 NS + KCL 20 MEQ 1,000 ML IV SCH ×2 (07:29→10:40)
[2018-06-09 07:46] LABS: ALB/GLOB RATIO 0.9; ALBUMIN 3.4 g/dL (3.5-5.0); CREATININE 1.2 mg/dL (0.7-1.2); MAGNESIUM 1.6 mg/dL (1.5-2.7); POTASSIUM 3.8 mmol/L (3.5-5.1); TOTAL BILIRUBIN 0.23 mg/dL (0.20-1.00); TOTAL PROTEIN 7.3 g/dL (6.3-8.3)
[2018-06-09] MEDS: MOBIC PO SCH (08:26)
[2018-06-09] MEDS: JANUVIA PO SCH (08:26)
[2018-06-09] MEDS: ASPIRIN PO SCH (08:27)
[2018-06-09] MEDS: LOPRESSOR PO SCH ×2 (08:27→21:29)
[2018-06-09] MEDS: LIPITOR PO SCH (08:27)
[2018-06-09] MEDS: NICODERM PATCH TD SCH (08:27)
[2018-06-09] MEDS: NORVASC PO SCH (08:29)
[2018-06-09] MEDS: MAXIPIME 1 GM in NS 50 ML IV SCH (12:57)
[2018-06-09] MEDS: UROXATRAL PO SCH (21:29)
[2018-06-10] MEDS: MAXIPIME 1 GM in NS 50 ML IV SCH (00:58)
[2018-06-10] MEDS: HEPARIN SUBQ SCH (00:58)
[2018-06-10] MEDS: PRILOSEC PO SCH (06:12)
[2018-06-10] MEDS: HUMALOG SUBQ SCH (06:15)
[2018-06-10 07:38] VITALS: BP 165/78
[2018-06-10] MEDS: JANUVIA PO SCH (10:36)
[2018-06-10] MEDS: NICODERM PATCH TD SCH (10:36)
[2018-06-10] MEDS: ASPIRIN PO SCH (10:36)
[2018-06-10] MEDS: NORVASC PO SCH (10:36)
[2018-06-10] MEDS: LOPRESSOR PO SCH (10:36)
[2018-06-10] MEDS: LIPITOR PO SCH (10:37)
[2018-06-10] MEDS: MOBIC PO SCH (10:37)
--- NOTE | 2018-06-10 11:52 | DISCHARGE SUMMARY ---
ADMISSION DATE: 06/06/2018 DISCHARGE DATE: 06/10/2018 FINAL DISCHARGE DIAGNOSES: 1. Urinary tract infection. 2. Chronic obstructive pulmonary disease. 3. Pulmonary fibrosis. 4. Hypertension. 5. Hyperlipidemia. 6. Coronary artery disease. 7. Back pain. 8. Lumbar spondylosis. 9. Benign prostatic hypertrophy. HISTORY: Mr. Gamble is an 83-year-old white gentleman admitted with urinary frequency, urgency, and some dysuria. The patient also had history of hematuria. The patient does get recurrent UTI's. He did have back pain not responding to outpatient treatment. The patient came to the emergency room. He was prescribed Cipro. Patient was not doing well. He continued to have pain, and also some feverish feeling. The patient came back to the ER and evaluated by the ER physician. Admitted for further care. HOSPITAL COURSE: The patient had a CT scan of the abdomen, pelvis and chest done which did reveal lumbar spondylosis, pulmonary fibrosis, prior cholecystectomy, some renal cyst, no renal or ureteral stone. Urinary bladder was partially distended. Diverticulosis. CT scan of the chest revealed pulmonary fibrosis which is slightly worse than previous study with evidence of COPD. No acute chest pathology. The patient was treated with IV fluids, IV antibiotics and symptomatic treatment. Because of recurrent UTI and problems, I did a Urology consult with Dr. Gomes and recommendation noted. The patient found to have an enlarged prostate with obstructive symptoms. The patient was started on Uroxatral as he was not tolerating Flomax well. Overall, patient is doing better. No fever or chills. Back pain is getting better. The patient is eager to go home. I am planning to discharge patient home today. Advised patient to quit smoking. Known pharmacologic treatment for low back pain. Plenty of liquids orally. Continue home medicine. The patient and understood and agreed. LABORATORY DATA: Lab data done on 06/09 revealed a hemoglobin of 11.1, hematocrit 34.3 WBC count 6.05, and platelet count 231,000. On admission, WBC count was 17.68. Electrolytes revealed sodium 135, potassium 3.8. Admission sodium was 125. Blood glucose 123. Patient does have history of NIDDM, not able to tolerate Glucophage. I did check his PSA which was 1.27. Urinalysis did reveal too numerous to count WBC, large urinary leukocytosis. Urine culture was negative due to the patient having antibiotics as an outpatient. DISPOSITION: Overall, patient is doing well. I am going to discharge him home today. Follow up with me in a weeks time. Continue home medicine as explained. Monitor blood pressure and Accu- Chek. DISCHARGE EXAMINATION: His vital signs noted. Neck: Supple. No JVD. Lungs: Bibasilar crepitations. Heart: S1 and S2 heard. Abdomen: Soft, globular. Bowel sounds present. Vague tenderness lumbosacral spine. IMPREGNATOR ELECTROLYTIC CAPACITORS: Alert, awake and able to move all 4 limbs. CONSIDERATION: UTI, NIDDM, and hypertension. The patient does have history of vertigo and spondylosis. Overall discharge condition satisfactory. cc: Blu Kessler MD
== END 2018-06-10 11:09 | disposition home or self-care (01) | DRG 690 ==
LOC: SUPCPDRO → ED 15:14 → 3N 23:00 → SUATTDRO 23:00
PROVIDERS: ADMIT Internal Medicine; ATTEND Internal Medicine
CPT/HCPCS: 71010; 71045; 71250; 74176; 76770; 80048; 80053; 81001; 82550; 82948; 83605; 83735; 84153; 84300; 84484; 85025; 85610; 85730; 87040; 87088; 96361; 96365; 99284; 99285; A9270; J0692; J0696; J1644; J1815; J7030; J7042; XXXXX